=== PATIENT | female | born 1960 | race Caucasian/White ===

== ENCOUNTER → 2019-05-27 08:29 | Outpatient (CLI) | payer BC, OTHER ==
[~2019-05-27 08:29] MED LIST: CYMBALTA60 MG PO; HYDROCODON-ACE1 EAC7 PO; HYDROCODONE-A1 UDTA2 PO; IBUPROFEN800 MG PO; PEPCID40 MG PO; VYVANSE60 MG PO
[2019-06-17 06:58] VITALS: BMI 32.3
== END | disposition home or self-care (01) ==
LOC: D.NM 08:29
PROVIDERS: ATTEND Emergency Medicine
DX: K82.9 Disease of gallbladder, unspecified (principal)

== ENCOUNTER 2019-06-17 06:40 | Day surgery (SDC) | payer BC, OTHER ==
[2019-06-16 16:05] LABS: HEMATOCRIT 38.2 % (36.0-48.0); HEMOGLOBIN 12.3 g/dL (12-16); MCH 29.6 pg (26.0-34.0); MCHC 32.2 g/dL (31.0-37.0); MCV 91.8 fL (80.0-100.0); RBC 4.16 10x6/uL (4.00-5.40); RDW 12.9 % (11.5-14.5); WBC 6.7 10x3/uL (4.8-10.8)
[2019-06-16 16:24] LABS: CALCIUM 8.8 mg/dL (8.5-10.1)
[~2019-06-17] VITALS: Ht 162.6 cm; Wt 85.5 kg
[~2019-06-17 06:40] MED LIST changes: -HYDROCODON-ACE1 EAC7 PO
[2019-06-17 06:58] VITALS: BP 130/73; Ht 162.6 cm; Wt 85.5 kg
[2019-06-17] MEDS ORDERED: HYDROCODON-ACE1 EAC7 PO (10:01)
--- NOTE | 2019-06-17 13:54 | NUR ---
1345 DC INSTS REVIEWED VOICED UNDERSTANDING DRESSED RELEASED IN WC WITH ESCORT.
== END 2019-06-17 13:45 | disposition home or self-care (01) ==
LOC: D.OPS 06:40 → D.PAN 09:30 → D.OPS 09:30
PROVIDERS: Anesthesiology; ATTEND Surgery
DX: K82.8 Other specified diseases of gallbladder (principal)